=== PATIENT | female | born 1980 | race Caucasian/White ===

== ENCOUNTER 2019-04-01 16:04 | Emergency (ER) | payer MEDICAID ==
[2019-04-01] MEDS ORDERED: CLINDAMYCIN 150 MG CAP PO ONE (16:27)
--- NOTE | 2019-04-01 16:33 | Emergency Department Record ---
History of Present Illness - General Chief complaint: Abscess Stated complaint: CYST TAILBONE Time Seen by Provider: 04/01/19 16:10 Source: Patient Mode of Arrival: Ambulatory Limitations: No limitations - History of Present Illness Initial comments: The patient has had some tailbone pain for 5 days. She believes she has a pilonidal abscess present and was sent to the ER by her PCP. She denies any AP or any other issues. MD complaint: Abscess/boil Onset/Timin -: Days(s) Location: Buttocks Severity scale (1-10): 9 Quality: Aching, Stabbing Consistency: Constant Improves with: Rest Worsens with: Palpation, Movement Context: None Associated symptoms: Denies other symptoms Treatments Prior to Arrival: None - Related Data Previous Rx's Medication Instructions Recorded Clindamycin HCl [Cleocin HCl] 300 mg PO QID #28 capsule 04/01/19 Allergies Allergy/AdvReac Type Severity Reaction Status Date / Time hydrocodone bitartrate Allergy VOMITING Unverified 04/01/19 13:26 [From Vicodin] nifedipine [From Procardia] Allergy HIVES Unverified 04/01/19 13:26 Travel Screening - Travel/Exposure Within Last 30 Days Have you traveled within the last 30 days?: No Review of Systems Constitutional: Denies: Chills, Fever Past Medical History - SOCIAL HISTORY Smoking Status: Current every day smoker - RESPIRATORY Hx Respiratory Disorders: Yes - CARDIOVASCULAR Hx Cardio Disorders: Yes Hx Hypertension: Yes (good control) Comment:: mitral valve prolapse - NEURO Hx Neuro Disorders: Yes Hx of Migraines: Yes (occass) - GI Hx GI Disorders: No - Hx Genitourinary Disorders: No - ENDOCRINE Hx Endocrine Disorders: No - MUSCULOSKELETAL Hx Musculoskeletal Disorders: Yes Hx Arthritis: Yes - PSYCH Hx Psych Problems: Yes Hx Anxiety: Yes Hx Depression: Yes - HEMATOLOGY/ONCOLOGY Hx Hematology/Oncology Disorders: Yes Hx Anemia: Yes Family Medical History Any Significant Family History?: Yes Hx Alcohol Use: Grandparents Hx Anxiety: Mother Hx Cancer: Grandparents Hx Dementia: Grandparents Hx Depression: Mother Hx Diabetes: Father Hx Heart Disease: Father Hx HTN: Father, Mother, Grandparents Hx Resp Disorders: Father Physical Exam - General General Appearance: Alert, Oriented x3, Cooperative, No acute distress - Head Head exam: Atraumatic, Normocephalic - Eye Eye exam: Normal appearance - Rectal Rectal exam: Normal inspection (There is a 2x2 cm area of tenderness to the superior buttock fold. There is no fluctance or erythema. There does appear to be a small deep possible abscess. There is no swelling or erythema over the area. ) - Extremities Image of Full Body: 1 - Area of pain and tenderness. Course Vital Signs 04/01/19 16:12 Temperature 98.4 F Pulse Rate 74 Respiratory 18 Rate Blood Pressure 151/89 Pulse Ox 100 - Reevaluation(s) Reevaluation #1: I did explain to the patient the fact that she does most likely have a deep small fluid collection present. I then offered to I and D the area or provide oral Abx's and sitz baths to allow the area to come to the surface easier. The patient would like to try the oral abx's and baths and will return in 2-3 days for recheck. I also will refer the patient to Dr. Quick for definitive management. 04/01/19 16:31 Disposition Disposition: Discharge Clinical Impression: Pilonidal cyst Disposition: Home, Self-Care Condition: (2) Stable Instructions: Pilonidal Cyst (ED) Additional Instructions: Please continue your home pain medicines and please continue the Clindamycin. Please return to the ER in 3 days for recheck and sooner for any worsening pain, swelling, or fever. Please see Dr. Quick in the Specialty clinic next week as planned. Prescriptions: Clindamycin HCl [Cleocin HCl] 300 mg PO QID #28 capsule Forms: Patient Portal Access Time of Disposition: 16:48 Quality - Quality Measures Quality Measures: N/A - Blood Pressure Screening View Details: Yes Does Patient Have Any of the Following: No Blood Pressure Classification: Pre-Hypertensive BP Reading Systolic Measurement: 151 Diastolic Measurement: 89 Screening for High Blood Pressure: < Pre-Hypertensive BP, F/U Documented > [[id number]] Pre-Hypertensive Follow-up Interventions: Referral to alternative/primary care provider.
== END 2019-04-01 16:58 | disposition home or self-care (01) ==
LOC: ER 16:04
DX: L05.91 Pilonidal cyst without abscess (principal)
CPT/HCPCS: 99283